=== PATIENT | female | born 1995 | race African-American/Black ===

== ENCOUNTER 2018-08-24 10:21 | Inpatient (IN) | payer OTHER ==
--- NOTE | 2018-08-23 22:19 | PDOC.LDHP ---
Labor and Delivery H&P Chief complaint: scheduled section Current gestational age (weeks): 39 Due date: 08/30/18 Grav: 4 Para: 2 Current complications: other ( section x 2) Abnormal US findings: No Past Medical History: negative Current medications: pre-new vitamins Previous surgical history: low tranverse CS Allergies/Adverse Reactions: Allergies Allergy/AdvReac Type Severity Reaction Status Date / Time No Known Allergies Allergy Unverified 12/01/14 15:17 Social history: none - Physical Exam Heart: RRR Lungs: CTAB Abdomen: gravid Extremeties: no edema FHT: category 1 - OB Labs Blood type: A RH: negative Antibody Screen: negative HIV: negative RPR: negative HEPSAg: negative 1 hour GCT: negative GBS: negative Urine drug screen: not done Rubella: immune - Assessment L&D Assessment: scheduled repeat section - Plan Plan: admit to L&D, to OR for section, informed consent obtained, anesthesia consult for pain management
[~2018-08-24 10:21] MED LIST: PHENYLEPHRINE-NS 100 MCG/ML 10 ML SYRINGE ONE; ePHEDrine/0.9% NaCl/PF SYRINGE 50 mg/10 ml ONE
[2018-08-24] MEDS ORDERED: CEFAZOLIN/Water 2 GM/20 ML SYRINGE SLOW IVP SCH (10:32)
[2018-08-24] MEDS ORDERED: Bicitra 30 ML UDCUP PO SCH (10:32)
[2018-08-24] MEDS ORDERED: Ondansetron PF 4 MG/2 ML Vial IVP PRN ×3 (10:32→13:50)
[2018-08-24] MEDS ORDERED: Promethazine HCl 25 MG/ML VIAL IM PRN ×2 (10:32→13:50)
[2018-08-24] MEDS ORDERED: CEFAZOLIN 2 GM/50 ML-DEXTROSE 2 GM in Premix Bag 1 BAG IVPB SCH (11:15)
[2018-08-24 11:21] LABS: Hemoglobin 13.1 g/dL (12.0-16.0); Mean Corpuscular HGB CONC 30.6 g/dL (32.0-36.0); Mean Corpuscular Hemoglobin 29.9 pg (27.0-31.0); Mean Corpuscular Volume 97.7 fL (78.0-98.0); Mean Platelet Volume 9.5 fL (7.4-10.4); Platelet Count 200 thou/uL (130-400); RBC Distribution Width 17.2 % (11.5-14.5); Red Blood Cell (RBC) Count 4.39 mill/uL (4.20-5.40); White Blood Cell (WBC) Count 9.1 thou/uL (4.8-10.8)
[2018-08-24 11:32] VITALS: BMI 31.5
[2018-08-24] MEDS: Lactated Ringer's 1,000 ML IV SCH ×2 (11:37→11:56)
[2018-08-24] MEDS ORDERED: Fentanyl 100 MCG/2 ML VIAL ONE (11:49)
[2018-08-24] MEDS ORDERED: Oxytocin 10 UNITS/ML VIAL ONE (11:49)
[2018-08-24] MEDS ORDERED: Morphine PF 1 MG/ML SYR ONE (11:49)
[2018-08-24] MEDS ORDERED: ePHEDrine/0.9% NaCl/PF SYRINGE 50 mg/10 ml ONE (11:49)
[2018-08-24 11:58] LABS: Syphilis Antibody Nonreactive (Nonreactive); Syphilis Antibody Index 0.06 S/CO (<1.00 Non-Reactive)
[2018-08-24 11:59] LABS: HBSAg Index 0.26 S/CO (0-0.99); Hep B Surf Ag Non-Reactive S/CO (NonReactive)
[2018-08-24] MEDS ORDERED: PHENYLEPHRINE-NS 100 MCG/ML 10 ML SYRINGE ONE (12:27)
[2018-08-24] MEDS ORDERED: Lanolin Ointment 7 GM TUBE TOP PRN (13:16)
[2018-08-24] MEDS ORDERED: diphenhydrAMINE 25 MG CAP PO PRN (13:16)
[2018-08-24] MEDS ORDERED: Adacel (T-DAP) 0.5 ML SYRINGE IM ONE (13:16)
[2018-08-24] MEDS ORDERED: traMADol HCl 50 MG TAB PO PRN (13:17)
--- NOTE | 2018-08-24 13:19 | PDOC.OPDEL ---
OB Operative/Delivery Note Delivery Dr/Surgeon: Kamran Assist: NAHOMI Layne Pre-Delivery Diagnosis: scheduled section Procedure/Post Delivery Dx: repeat low transverse CS Weeks gestation: 39 Anesthesia: spinal - Findings A Sex: female Weight: 6 lb 4 oz - 1 min: 8 - 5 min: 9 - Additional Findings/Plan Placenta delivered: manual removal findings: low transverse hysterotomy without extension, normal uterus, normal tubes, normal ovaries Estimated blood loss: 400 ml Post delivery plan: routine recovery
[2018-08-24] MEDS ORDERED: NS / Oxytocin 40 units/1000ml 1,000 ML IV SCH (13:30)
[2018-08-24] MEDS ORDERED: Ondansetron HCl/PF 4 MG/2 ML Vial IVP PRN (13:50)
[2018-08-24] MEDS ORDERED: L&D-Morphine 4 MG/ML VIAL SLOW IVP PRN (13:50)
[2018-08-24] MEDS ORDERED: Eucerin (Mineral Oil/Petrolatum,White) 30 gm Jar TOP PRN (13:50)
[2018-08-24] MEDS ORDERED: Naloxone HCl 0.4 mg/ml Vial IV PRN (13:50)
[2018-08-24] MEDS ORDERED: Naloxone HCl 0.4 mg/ml Vial IVP PRN ×2 (13:50)
[2018-08-24] MEDS ORDERED: HYDROmorphone 2 MG/ML VIAL SLOW IVP PRN (13:50)
[2018-08-24] MEDS ORDERED: Promethazine HCl 25 MG SUPP PR PRN (13:50)
[2018-08-24] MEDS ORDERED: Meperidine HCl/PF 25 MG/ML VIAL SLOW IVP PRN (13:50)
[2018-08-24] MEDS ORDERED: Ibuprofen 800 MG TAB PO SCH (14:00)
[2018-08-24] MEDS ORDERED: Communication Order-Pharmacy FS SCH (14:00)
[2018-08-24] MEDS ORDERED: Ketorolac Tromethamine 30 MG/ML VIAL IVP SCH (14:00)
[2018-08-24] MEDS ORDERED: diphenhydrAMINE 50 MG/ML VIAL ONE (14:59)
[2018-08-24] MEDS: diphenhydrAMINE 50 MG/ML VIAL IVP PRN ×2 (15:04→21:06)
--- NOTE | 2018-08-24 16:31 | OP ---
DATE OF PROCEDURE: 08/24/2018 PREOPERATIVE DIAGNOSES: 1. A 23-year-old female G4, P2, A1 at 39 weeks plus gestation. 2. Prior section x2. POSTOPERATIVE DIAGNOSES: 1. A 23-year-old female G4, P2, A1 at 39 weeks plus gestation. 2. Prior section x2. COURTESY DRIVER SURGEON: Flavia Navas PA-C. SECOND COURTESY DRIVER: Dr. Wiggins, [facility]. PROCEDURE PERFORMED: Primary low transverse section with extension of spinal block with anesthesia. ESTIMATED BLOOD LOSS: 400 mL. COMPLICATIONS: None. COUNTS: Correct x2. FINDINGS: 1. Female infant, vertex presentation, weight 6 pounds 4 ounces. Apgars 8 and 9. 2. Clear amniotic fluid noted. 3. Clear urine present in Luna catheter postprocedure. 4. Normal uterus, fallopian tubes, and ovaries. DISPOSITION: Recovery room, stable. DESCRIPTION OF PROCEDURE: The patient previously received informed consent in regard to surgery. She was taken back to the operating room, where she was administered a spinal anesthetic agent without complications. She was placed in the supine position, prepped and draped in usual sterile fashion. Luna catheter and SCDs were placed. A Pfannenstiel incision was made through the previous scar site, this was carried down the fascia. Fascia was nicked in the midline. Fascial incision was extended bilaterally with the use of curved Martin scissors. The edges of the fascia were then grasped with 2 Aldair clamps and the anterior rectus fascia was dissected sharply and bluntly off the rectus muscle bellies. There was some adherence noted from previous scar tissue, which we meticulously dissected allowing room for the delivery of the infant. This was repeated in similar fashion in the inferior edge of the fascia. The rectus muscles were then sharply opened and divided meticulously, avoiding trauma to the viscera below. Once we extended this, the rectus muscle bellies were stretched and a bladder blade was placed. Bladder flap was noted to be well below the anticipated hysterotomy site. Hysterotomy incision was made above the reflection of the bladder and this was extended via finger fractionation. The amniotic bag was ruptured. Clear fluid noted. The baby was delivered in the vertex presentation. Mouth and nares were bulb suctioned on the abdomen. Cord was doubly clamped and cut and the baby was handed to the pediatric team in attendance. Usual cord blood was obtained. The placenta was manually extracted and the uterus was externalized. The uterus was then curetted of any remaining placental fragments with a dry laparotomy sponge. The hysterotomy incision was closed with #1 Monocryl suture in running locking fashion with good hemostasis confirmed. The uterus was returned back into the abdomen and pelvis again was inspected and noted to be hemostatic. The rectus muscle bellies were then inspected and noted to be hemostatic prior to fascial closure. The fascia was closed with 0 PDS suture x2 in a running continuous fashion. Subcutaneous tissue was irrigated and cauterized any areas of oozing confirming hemostasis. The skin was then approximated with katie. The surgery is terminated. No anesthetic or surgical complications occurred. Job ID: [id number]
[2018-08-24] MEDS: Ketorolac Tromethamine 30 MG/ML VIAL IVP SCH (16:48)
[2018-08-25] MEDS: Ketorolac Tromethamine 30 MG/ML VIAL IVP SCH ×4 (00:10→12:27)
[2018-08-25] MEDS: Ferrous Sulfate 325 MG TAB PO SCH ×3 (00:12→08:28)
[2018-08-25] MEDS: Docusate Calcium (SURFAK) 240 MG CAP PO SCH ×4 (00:12→21:51)
--- NOTE | 2018-08-25 08:07 | PDOC.PP ---
Post Progress Note Post Day #: 1 PO intake tolerated: yes Flatus: yes Ambulation: yes Vital Signs (12 hours) Temp Pulse Resp BP Pulse Ox 08/24/18 20:33 98.0 F 84 18 98/54 L 97 Weight Weight 178 lb - Physical Examination Abdominal: + bowel sounds, no distention (incision clean and dry) Result Diagrams: 08/24/18 10:42 Additional Labs: Post Labs Blood Type A NEGATIVE 08/24/18 Unknown Hep Bs Antigen Non-Reactive S/CO (NonReactive) 08/24/18 10:42 - Assessment/Plan post op day 1 from repeat c/s . doing well. Anticipate discharge home tomorrow.
[2018-08-25 08:16] LABS: Hemoglobin 9.3 g/dL (12.0-16.0); Mean Corpuscular Hemoglobin 31.2 pg (27.0-31.0); Mean Corpuscular Volume 91.6 fL (78.0-98.0); Mean Platelet Volume 8.4 fL (7.4-10.4); Platelet Count 154 thou/uL (130-400); RBC Distribution Width 12.6 % (11.5-14.5); Red Blood Cell (RBC) Count 2.97 mill/uL (4.20-5.40); White Blood Cell (WBC) Count 10.7 thou/uL (4.8-10.8)
[2018-08-25] MEDS: Prenatal Vitamin 1 TAB PO SCH (08:28)
[2018-08-25] MEDS ORDERED: Sodium Chloride 0.9% 10 ML ONE (12:22)
[2018-08-25] MEDS: Simethicone Chewable 80 MG TAB PO PRN (12:31)
[2018-08-25] MEDS ORDERED: HYDROcodone/Acetaminophen 5/325 mg Tablet PO PRN ×2 (18:36)
[2018-08-25] MEDS: Ibuprofen 800 MG TAB PO SCH (21:50)
[2018-08-26] MEDS: Ferrous Sulfate 325 MG TAB PO SCH ×2 (05:30→08:33)
[2018-08-26] MEDS: Ibuprofen 800 MG TAB PO SCH (05:31)
[2018-08-26] MEDS: Prenatal Vitamin 1 TAB PO SCH (08:32)
[2018-08-26] MEDS: Simethicone Chewable 80 MG TAB PO PRN (08:34)
[2018-08-26] MEDS: Docusate Calcium (SURFAK) 240 MG CAP PO SCH (08:34)
[2018-08-26 11:53] VITALS: BP 102/64; TEMP 98.2
== END 2018-08-26 12:15 | disposition home or self-care (01) | DRG 788 ==
LOC: L&D 10:21 → 3SW 15:30
PROVIDERS: ADMIT Obstetrics & Gynecology; ATTEND Obstetrics & Gynecology
PROC: 10D00Z1 Extraction of Products of Conception, Low, Open Approach (ICD-10-PCS; principal; 2018-08-24)
DX: O34.211 Maternal care for low transverse scar from previous cesarean delivery (principal); Z3A.39 39 weeks gestation of pregnancy; Z37.0 Single live birth; O26.893 Other specified pregnancy related conditions, third trimester; Z67.11 Type A blood, Rh negative
CPT/HCPCS: 36415; 51702; 85027; 86780; 86850; 86870; 86900; 86901; 87340; J1200; J1885; J2274; J2590; J3010